=== PATIENT | female | born 1950 | race Caucasian/White ===

== ENCOUNTER 2017-08-24 20:22 | Inpatient (IN) | payer MEDICARE, MEDICAID ==
--- NOTE | 2017-08-24 20:54 | ED Physician Chart ---
ED Chief Complaint/HPI - Patient Information Date Seen:: 08/24/17 Time Seen:: 20:20 Chief Complaint:: Flank pain History of Present Illness:: onset x 3 days of flank pain, fever, and dysuria; no report of trauma, H/As, neck pain, cough, C/P, SOB, Abd. Pain, A/N/V/D/C, chills, or bleeding Allergies:: Allergies Allergy/AdvReac Type Severity Reaction Status Date / Time Sulfa (Sulfonamide Allergy Verified 08/24/17 20:30 Antibiotics) Vitals:: Vital Signs - 8 hr 08/24/17 20:23 Temp 98.7 F HR 84 RR 18 BP 161/114 O2 Sat % 97 Historian:: Patient, EMS Review:: Nurse's Note Reviewed, Old Chart Reviewed, EMS run form Reviewed ED Review of Systems - Review of Systems General/Constitutional: Fever, No chills, No weight loss, No weakness, No diaphoresis, No edema, No loss of appetite Skin: No skin lesions, No rash, No bruising Head: No headache, No light-headedness Eyes: No loss of vision, No pain, No diplopia ENT: No earache, No nasal drainage, No sore throat, No tinnitus Neck: No neck pain, No swelling, No thyromegaly, No stiffness, No mass noted Cardio Vascular: No chest pain, No palpitations, No PND, No orthopnea, No edema Pulmonary: No SOB, No cough, No sputum, No wheezing GI: No nausea, No vomiting, No diarrhea, No pain, No melena, No hematochezia, No constipation, No hematemesis G/U: Dysuria, No frequency, No hematuria, No nacturia Optometrist Owner: No vaginal discharge, No abnormal vaginal bleed, No contraction Musculoskeletal: No bone or joint pain, No back pain, No muscle pain Endocrine: No polyuria, No polydipsia Psychiatric: No prior psych history, No depression, No anxiety, No suicidal ideation, No homicidal ideation, No auditory hallucination, No visual hallucination Hematopoietic: No bruising, No lymphadenopathy Allergic/Immuno: No urticaria, No angioedema Neurological: No syncope, No focal symptoms, No weakness, No paresthesia, No headache, No seizure, No dizziness, No confusion, No vertigo ED Past Medical History - Past Medical History Obtainable: Yes Past Medical History: HTN, Dyslipidemia Family History: HTN Social History: Non Smoker, No Alcohol, No Drug Use, , Care Facility Surgical History: None Psychiatricy History: None Medication: Reviewed Family Medical History - Family Member Mother History Unknown: Yes ED Physical Exam - Physical Examination General/Constitutional: Awake, Well-developed, well-nourished, Alert, No distress, GCS 15, Non-toxic appearing, Ambulatory Head: Atraumatic Eyes: Lids, conjuctiva normal, PERRL, EOMI Skin: Nl inspection, No rash, No skin lesions, No ecchymosis, Well hydrated, No lymphadenopathy ENMT: External ears, nose nl, TM canals nl, Nasal exam nl, Lips, teeth, gums nl , Oropharynx nl, Tonsils nl Neck: Nontender, Full ROM w/o pain, No JVD, No nuchal rigidity, No bruit, No mass, No stridor Respiratory: Nl effort/Exclusion, Clear to Auscultation, No Wheeze/Rhonchi/Rales Cardio Vascular: RRR, No murmur, gallop, rubs, NL S1 S2, Carotid/Femoral/Distal pulses equal bilaterally GI: No tenderness/rebounding/guarding, No organomegaly, No hernia, Normal BS's, Nondistended, No mass/bruits, No McBurney tenderness : No CVA tenderness Extremities: No tenderness or effusion, Full ROM, normal strength in all extremities, No edema, Normal digits & nails Neuro/Psych: Alert/oriented, DTR's symmetric, Normal sensory exam, Normal motor strength, Judgement/insight normal, Mood normal, Normal gait, No focal deficits Misc: Normal back, No paraspinal tenderness ED Labs/Radiology/EKG Results - Lab Results Comments:: WBC: 11.1 - Radiology Results Comments:: NAD - EKG Interpretations EKG Time:: 20:45 Rate & Rhythm: 84; NSR Comments:: non-specific st-t changes ED Septic Shock - . Is Septic Shock (SBP<90, OR Lactate>4 mmol\L) present?: No - <6hrs of presentation: Vital Signs: Vital Signs - 8 hr 08/24/17 20:23 Temp 98.7 F HR 84 RR 18 BP 161/114 O2 Sat % 97 ED Reassessment (Disposition) - Reassessment Reassessment Condition:: Improved - Diagnosis Diagnosis:: Leukocytosis; Sepsis; Back Pain; Flank Pain - Aftercare/Follow up Instructions Aftercare/Follow-Up Instructions:: Counseled pt regarding lab results/diagnosis & need follow up, Counseled pt & family regarding lab results/diagnosis & need follow up - Patient Disposition Discharge/Transfer:: Acute Care w/in this [place] [facility] Accepting Physician:: Dr. Rivas Time Called:: 2199 Time Responded:: 22:00 Admitted to:: Med/Surg Spoke to:: Dr. Rivas Admitting Medical Physician:: Dr. Rivas Condition at Disposition:: Stable, Improved ED Discharge Plan - Patient Disposition Admit/Discharge/Transfer: Acute Care w/in this hosp
[2017-08-24 22:38] LABS: % BASOPHILS 0.7 % (0.0-2.0); % EOSINOPHILS 1.6 % (0.0-5.0); % LYMPHOCYTES 19.4 % (20.0-50.0); % NEUTROPHILS 73.3 % (40.0-80.0); BASOPHILE ABSOLUTE 0.1 Th/cumm (0-0.2); EOSINOPHILE ABSOLUTE 0.2 Th/cmm (0.1-0.4); HEMATOCRIT 42.1 % (41.0-60); HEMOGLOBIN 13.8 gm/dL (12-16); LYMPHOCYTE ABSOLUTE 2.2 Th/cmm (1.5-3.0); MEAN CELL VOLUME 87.7 fl (81-100); MEAN CORPUSCULAR HEMOGLOBIN 28.7 pg (27.0-31.0); MEAN CORPUSCULAR HGB CONC 32.7 pg (28.0-36.0); MONOCYTE ABSOLUTE 0.6 Th/cmm (0.3-1.0); PLATELET COUNT 307 Th/cmm (150-400); RED CELL DISTRIBUTION WIDTH 13.4 % (11.5-20.0); WHITE BLOOD COUNT 11.1 Th/cmm (4.8-10.8)
[2017-08-24 22:48] LABS: ALB/GLOB RATIO 1.1 (1.0-1.8); ALBUMIN 3.4 gm/dL (3.7-5.3); ALKALINE PHOSPHATASE 80 U/L (34-104); ANION GAP 8.3 (7.0-16.0); BILIRUBIN,TOTAL 0.3 mg/dL (0.3-1.0); BUN - UREA NITROGEN 13 mg/dL (7-25); CALCIUM SERUM 9.2 mg/dL (8.6-10.3); CARBON DIOXIDE 32.6 mEq/L (21.0-31.0); CHLORIDE 100 mEq/L (98-107); CHOLESTEROL 162 mg/dL (<200); CREATININE - SERUM 0.6 mg/dL (0.6-1.2); CREATININE KINASE 20 U/L (30-223); GFR AFRICAN-AMERICAN > 60.0 ml/min (>90); GFR NON AFRICAN-AMERICAN > 60.0 ml/min; GLUCOSE 114 mg/dL (70-105); HDL -HIGH DENSITY LIPOPROTEIN 32 mg/dL (23-92); POTASSIUM SERUM 3.9 mEq/L (3.5-5.1); SGOT 12 U/L (13-39); SGPT/ALT 15 U/L (7-52); SODIUM SERUM 137 mEq/L (136-145); TOTAL PROTEIN,SERUM 6.4 gm/dL (6.0-8.3); TRIGLYCERIDES 119 mg/dL (<150)
[2017-08-24] MEDS ORDERED: Magnesium Hydroxide (MOM) 30 mL UDC PO PRN (23:12)
[2017-08-24] MEDS ORDERED: Promethazine DM 6.25/15mg-5mL 5 ML SYR PO PRN (23:12)
[2017-08-24 23:14] LABS: INR 0.88 (0.5-1.4)
--- NOTE | 2017-08-25 00:26 | History & Physical ---
ADMIT DATE: 08/25/2017 CHIEF COMPLAINT: Lower abdominal pain, low back pain, and flank pain as well as dysuria with foul smelling and fever. HISTORY OF PRESENT ILLNESS: The patient is a 67-year-old female admitted from the Emergency Room to telemetry floor of [facility] due to multiple complicated medical conditions. The patient was complaining of dysuria, lower abdominal pain, and bilateral flank pain with fever for the past few days with progressive worsening. The patient's white count is elevated to 11,100. UA was not done as the patient refused to be catheterized and she is incontinent per herself. Blood culture ordered and empiric antibiotic started with Zosyn, which will be adjusted accordingly when the blood culture becomes available and when the patient agrees to have her urine collected. Her troponin is less than 0.01. Blood sugar 114. Chest x-ray, no official report yet. The patient herself is somewhat anxious. The patient would like to be admitted due to her concerns. PAST MEDICAL HISTORY: Hypertension, constipation, vitamin D deficiency, degenerative joint disease, chronic pain syndrome, gastroesophageal reflux disease, cough, and urinary tract infection. PAST SURGICAL HISTORY: Denies significant past surgical history. MEDICATIONS: See medication reconciliation list. ALLERGIES: SULFA. FAMILY HISTORY: Noncontributory. SOCIAL HISTORY: The patient smoked before, quit years ago. No history of alcohol or IV drug abuse. REVIEW OF SYSTEMS: As per HPI. PHYSICAL EXAMINATION: GENERAL: Well-developed and overweight female in no acute distress. SKIN: Warm and dry with some discoloration. VITAL SIGNS: Basically stable except hypertension, blood pressure 161/114. HEENT: Normocephalic and atraumatic. Pupils equal, round, and react to light and accommodation. CHEST: Symmetrical. LUNGS: Few wheezes appreciated. HEART: Normal sinus rhythm. S1 and S2. ABDOMEN: Benign, soft, and nontender. EXTREMITIES: No clubbing or cyanosis. There is trace edema ____. NEUROLOGIC: Unremarkable. LABORATORY DATA: Reviewed. ASSESSMENT AND PLAN: 1. Leukocytosis: This is probably due to ____ urinary tract infection, however, the patient refused to be catheterized and she is incontinent. Blood culture ordered and empiric antibiotics started, which will be adjusted accordingly. 2. Probable urinary tract infection: Blood culture ordered and urine culture also ordered in anticipation to changing her mind after education again. 3. Hypertensive urgency: Observe her closely. The patient does have history of hypertension. May need to adjust blood pressure medication. 4. Low abdominal and bilateral flank pain, probably due to urinary tract infection, but need to rule out complications. We will observe her closely. 5. Degenerative joint disease. 6. Constipation, p.r.n. medications given. 7. Deep venous thrombosis prophylaxis. [facility]# [id number]
[2017-08-25] MEDS ORDERED: Magnesium Hydroxide (MOM) 30 mL UDC PO PRN (00:45)
[2017-08-25] MEDS ORDERED: Promethazine DM 6.25/15mg-5mL 5 ML SYR PO PRN (00:46)
[2017-08-25 00:57] VITALS: BP 145/56
[2017-08-25] MEDS ORDERED: Piperacillin Sodium/Tazobact 3.375 gm Vial IV ONE ×2 (01:03→05:00)
--- NOTE | 2017-08-25 07:56 | Diagnostic Imaging Report ---
CHEST X-RAY: AP view INDICATION: pain COMPARISON: None FINDINGS: Mild congestive changes are noted. Note exam is limited due to body habitus. The patient is mildly rotated. Cardiomegaly is noted. Degenerative changes of the spine and shoulders are noted. IMPRESSION: Mild congestive changes. Note atelectasis versus infiltrate right lung base cannot be excluded. Clinical correlation recommended. Cardiomegaly.
[2017-08-25] MEDS ORDERED: Non-Formulary Item 1 EA (Amino Acids/Protein Hydrolys [Pro-Stat Sugar Free Liquid] 30 ML) PO SCH (09:00)
[2017-08-26 11:56] LABS: BUN - UREA NITROGEN 13 mg/dL (7-25); CALCIUM SERUM 8.5 mg/dL (8.6-10.3); CARBON DIOXIDE 21.5 mEq/L (21.0-31.0); CHLORIDE 104 mEq/L (98-107); CREATININE - SERUM 0.6 mg/dL (0.6-1.2); GFR AFRICAN-AMERICAN > 60.0 ml/min (>90); GFR NON AFRICAN-AMERICAN > 60.0 ml/min; GLUCOSE 137 mg/dL (70-105); POTASSIUM SERUM 4.5 mEq/L (3.5-5.1); SODIUM SERUM 136 mEq/L (136-145)
--- NOTE | 2017-08-26 18:11 | Progress Notes ---
DATE: 08/25/2017 SUBJECTIVE: The patient complains of some short of breath and weakness. OBJECTIVE: VITAL SIGNS: Basically stable. HEENT: Normocephalic, atraumatic. Pupils equal, round, react to light and accommodation. CHEST: Symmetrical. LUNGS: Few wheezing appreciable. Rhonchi in the right lower lung zone. CARDIAC: Normal sinus rhythm, S1 and S2. ABDOMEN: Benign, soft, nontender. EXTREMITIES: No clubbing, cyanosis. Trace edema . NEUROLOGICAL: Unremarkable. LABORATORY DATA: Reviewed as seen from the computer. ASSESSMENT AND PLAN: 1. Probable early right lower lobe pneumonia: IVPB antibiotics and RT protocol ordered. Sputum culture will be ordered. Antibiotics will be adjusted accordingly. 2. Leukocytosis: Probably due to early pneumonia and urinary tract infection. 3. Lower abdominal and bilateral flank pain on and off, but slightly improving. 4. Constipation. 5. Degenerative joint disease. 6. DVT prophylaxis. 7. Hypertension, improving. [facility]# [id number]
[2017-08-27 05:34] LABS: % BASOPHILS 0.9 % (0.0-2.0); % EOSINOPHILS 2.4 % (0.0-5.0); % LYMPHOCYTES 17.3 % (20.0-50.0); % MONOCYTES 4.8 % (2.0-10.0); % NEUTROPHILS 74.6 % (40.0-80.0); BASOPHILE ABSOLUTE 0.1 Th/cumm (0-0.2); EOSINOPHILE ABSOLUTE 0.3 Th/cmm (0.1-0.4); HEMATOCRIT 43.6 % (41.0-60); HEMOGLOBIN 14.5 gm/dL (12-16); MEAN CELL VOLUME 87.6 fl (81-100); MEAN CORPUSCULAR HEMOGLOBIN 29.2 pg (27.0-31.0); MEAN CORPUSCULAR HGB CONC 33.3 pg (28.0-36.0); MONOCYTE ABSOLUTE 0.5 Th/cmm (0.3-1.0); NEUTROPHILE ABSOLUTE 8.5 Th/cmm (1.8-8.0); PLATELET COUNT 274 Th/cmm (150-400); RED BLOOD COUNT 4.98 Mil/cmm (3.80-5.20); RED CELL DISTRIBUTION WIDTH 13.1 % (11.5-20.0); WHITE BLOOD COUNT 11.4 Th/cmm (4.8-10.8)
[2017-08-27 06:02] LABS: ANION GAP 11.3 (7.0-16.0); BUN - UREA NITROGEN 15 mg/dL (7-25); CALCIUM SERUM 8.9 mg/dL (8.6-10.3); CARBON DIOXIDE 27.9 mEq/L (21.0-31.0); CHLORIDE 101 mEq/L (98-107); CREATININE - SERUM 0.5 mg/dL (0.6-1.2); GFR AFRICAN-AMERICAN > 60.0 ml/min (>90); GFR NON AFRICAN-AMERICAN > 60.0 ml/min; GLUCOSE 156 mg/dL (70-105); POTASSIUM SERUM 4.2 mEq/L (3.5-5.1); SODIUM SERUM 136 mEq/L (136-145)
--- NOTE | 2017-08-27 10:11 | Progress Notes ---
DATE: 08/26/2017 SUBJECTIVE: According to the patient, she is lethargic, afebrile. OBJECTIVE: VITAL SIGNS: Basically stable. HEENT: Normocephalic, atraumatic. Pupils equal, round, react to light and accommodation. CHEST: Symmetrical. LUNGS: Few rhonchi appreciated in the right lower lung zone. CARDIAC: Normal sinus rhythm. S1, S2. ABDOMEN: Benign, soft, nontender. EXTREMITIES: No clubbing, cyanosis, edema bilaterally . NEUROLOGICAL: Unremarkable. LAB: Reviewed. ASSESSMENT AND PLAN: 1. Leukocytosis: Probably due to a pneumonia or urinary tract infection. We will repeat complete blood count in the morning. 2. Early pneumonia is addressed in lower lobe: IVPB antibiotics and sputum culture pending and the blood culture pending. Antibiotics will be adjusted accordingly. 3. Lower abdominal and bilateral flank pain, improving. 4. Constipation. 5. Deep venous thrombosis prophylaxis. 6. Degenerative joint disease. 7. Hypertension. 8. Discharge planning. JOB# [id number]
--- NOTE | 2017-08-28 05:14 | Progress Notes ---
DATE: 08/27/2017 SUBJECTIVELY: The patient is somewhat agitated, complained short of breath from time to time. OBJECTIVE: VITAL SIGNS: Basically stable. HEENT: Normocephalic, atraumatic. Pupils equal, round, react to light and accommodation. CHEST: Symmetrical. LUNGS: Few wheezing appreciable. Rhonchi in the right lower lung zone. CARDIAC: Normal sinus rhythm, occasional tachycardia on and off. ABDOMEN: Benign, soft, nontender. EXTREMITIES: No clubbing, cyanosis, edema bilateral . NEUROLOGIC: Unremarkable. LABORATORY DATA: Lab reviewed. WBC went up from 11,100-11,400. Blood sugar 156. Troponin less than 0.01. TSH is normal. ASSESSMENT AND PLAN: 1. Persistent leukocytosis: Probably related to the patient diagnosis of pneumonia in the right lower lobe. 2. Early pneumonia in right lower lobe. IVPB antibiotics, which will be adjusted accordingly when the culture becomes available. 3. Lower abdominal and bilateral flank pain, improving. 4. Constipation, improving. 5. Degenerative disk disease. 6. Deep vein thrombosis prophylaxis. 7. Hypertension. 8. Discharge planning. JOB# [id number]
--- NOTE | 2017-08-29 03:27 | Progress Notes ---
DATE: 08/28/2017 SUBJECTIVE: The patient complained of some short of breath. OBJECTIVE: VITAL SIGNS: Basically stable. HEENT: Normocephalic, atraumatic. Pupils equal, round, and reactive to light and accommodation. CHEST: Symmetrical. LUNGS: Few wheezing appreciable. Rhonchi in the right lower lung zone. CARDIAC: Normal sinus rhythm. S1, S2. ABDOMEN: Benign, soft, nontender. EXTREMITIES: No clubbing, cyanosis. There is trace edema bilaterally 2+ equally. NEUROLOGICAL: Unremarkable. LABORATORY DATA: Reviewed as seen from the computer. ASSESSMENT AND PLAN: 1. Early pneumonia in the right lower lobe: Continue IV PPI antibiotics, which will be adjusted accordingly. 2. Probable urinary tract infection, but the patient refused to have urine collected. 3. Persistent leukocytosis: We will repeat CBC in the morning to make sure the patient's WBC is going down. 4. Lower abdominal pain and bilateral flank pain, improving. 5. Constipation, improving. 6. Chronic pain syndrome. 7. Deep venous thrombosis prophylaxis. 8. ____. 9. History of hypertension. 10. Discharge planning. JOB# [id number]
[2017-08-29 15:35] LABS: % BASOPHILS 0.2 % (0.0-2.0); % EOSINOPHILS 1.8 % (0.0-5.0); % LYMPHOCYTES 16.9 % (20.0-50.0); % MONOCYTES 5.4 % (2.0-10.0); % NEUTROPHILS 75.7 % (40.0-80.0); EOSINOPHILE ABSOLUTE 0.2 Th/cmm (0.1-0.4); HEMATOCRIT 43.7 % (41.0-60); HEMOGLOBIN 14.6 gm/dL (12-16); LYMPHOCYTE ABSOLUTE 1.7 Th/cmm (1.5-3.0); MEAN CELL VOLUME 87.8 fl (81-100); MEAN CORPUSCULAR HEMOGLOBIN 29.3 pg (27.0-31.0); MEAN CORPUSCULAR HGB CONC 33.3 pg (28.0-36.0); MEAN PLATELET VOLUME 8.1 fl; MONOCYTE ABSOLUTE 0.5 Th/cmm (0.3-1.0); NEUTROPHILE ABSOLUTE 7.5 Th/cmm (1.8-8.0); PLATELET COUNT 266 Th/cmm (150-400); RED BLOOD COUNT 4.97 Mil/cmm (3.80-5.20); RED CELL DISTRIBUTION WIDTH 12.7 % (11.5-20.0); WHITE BLOOD COUNT 9.9 Th/cmm (4.8-10.8)
--- NOTE | 2017-08-30 22:06 | Discharge Summary ---
DATE OF DISCHARGE: 08/29/2017 FINAL DIAGNOSES: 1. Acute short of breath, resolved. 2. Early pneumonia of the right lower lobe. IVPB antibiotics with improvement clinically. 3. Lower abdominal pain and bilateral flank pain, resolved. 4. Probable urinary tract infection, but the patient refused urine collection. 5. Hypertensive urgency, resolved. 6. Chronic pain syndrome. HOSPITAL COURSE: The patient is a 67-year-old female admitted due to shortness of breath, lower abdominal and bilateral flank pain as well as leukocytosis and probable urinary tract infection. The patient also had hypertensive urgency on admission, which improved subsequently. Chest x-ray revealed early infiltrate in the right lower lobe and empiric antibiotics were started. The patient's short of breath resolved and the leukocytosis elevation also resolved. The patient was accepted back to shelter. DISCHARGE CONDITION: Stable. DISPOSITION: [facility]. DISCHARGE MEDICATIONS: Continue medication from here. DIET: Cardiac, soft diet. ACTIVITY: Bed rest with physical therapy. FOLLOWUP: One week. [facility]# [id number]
== END 2017-08-29 17:51 | DRG 871 ==
LOC: ER 20:22 → TELE 23:00
PROVIDERS: ADMIT Internal Medicine; ATTEND Internal Medicine
DX: A41.9 Sepsis, unspecified organism (principal); J18.9 Pneumonia, unspecified organism; N39.0 Urinary tract infection, site not specified; I10 Essential (primary) hypertension; E55.9 Vitamin D deficiency, unspecified; M19.90 Unspecified osteoarthritis, unspecified site; G89.4 Chronic pain syndrome; K21.9 Gastro-esophageal reflux disease without esophagitis; I16.0 Hypertensive urgency; E78.5 Hyperlipidemia, unspecified; M54.9 Dorsalgia, unspecified; Z88.2 Allergy status to sulfonamides; Z82.49 Family history of ischemic heart disease and other diseases of the circulatory system; Z87.891 Personal history of nicotine dependence; K59.00 Constipation, unspecified
CPT/HCPCS: 36415-UA; 71045-TC; 80048-TC; 80053-TC; 80061-TC; 82378-90; 82550-TC; 83605; 83880-TC; 84443-TC; 84484-TC; 85025-TC; 85610-TC; 85730-TC; 86304-90; 87086-90; 93005; J2543; J7040; Z7610